=== PATIENT | female | born 1980 | race Caucasian/White ===

== ENCOUNTER 2019-01-24 22:01 | Emergency (ER) | payer OTHER ==
[2019-01-24] MEDS ORDERED: EPINEPHRINE 1 MG/ML 1 ML VIAL IM ONE (22:17)
[2019-01-24] MEDS ORDERED: methylPREDNISolone 125 MG* 2 ML VIAL IV ONE (22:17)
--- NOTE | 2019-01-24 22:24 | ED ---
Allergic Reaction/Systemic - HPI Summary HPI Summary: This patient is a 38 year old F presenting to [facility] accompanied by with a chief complaint of possible allergic reaction that began [employer]. Patient states the symptoms began after showering. The patient rates the pain 6/10 in severity. Symptoms aggravated by nothing. Symptoms alleviated by nothing. Patient reports burning skin, itching skin, swelling lips, swelling eyes, and diffuse rash. Patient denies having any previous allergic reaction. - History of Current Complaint Chief Complaint: EDAllergicReaction Hx Obtained From: Patient Onset/Duration: Sudden Onset, Started hours ago, Still Present Timing: Constant Severity Initially: Moderate Severity Currently: Moderate Pain Intensity: 6 Pain Scale Used: 0-10 Numeric Location: Diffuse Character: Pruritus Aggravating Factor(s): Nothing Alleviating Factor(s): Nothing Associated Signs And Symptoms: Positive: Other: - Positive burning skin, itching skin, swelling lips, swelling eyes, and diffuse rash - Allergies/Home Medications Allergies/Adverse Reactions: Allergies Allergy/AdvReac Type Severity Reaction Status Date / Time No Known Allergies Allergy Verified 01/24/19 22:04 PMH/Surg Hx/FS Hx/Imm Hx Previously Healthy: Yes Opthamlomology History: Denies: Hx Legally Blind EENT History: Denies: Hx Deafness - Immunization History Date of Tetanus Vaccine: unk Date of Influenza Vaccine: fall 2017 Infectious Disease History: No Infectious Disease History: Denies: Traveled Outside the [place] in Last 30 Days - Family History Known Family History: Positive: Diabetes Negative: Cardiac Disease - Social History Occupation: Employed Full-time Lives: With Family Alcohol Use: Weekly Hx Substance Use: No Substance Use Type: Reports: None Hx Tobacco Use: No Smoking Status (MU): Never Smoked Tobacco Review of Systems Positive: Other - Positive swelling of the lips and eyes Positive: Rash, Other - Positive burning skin and itching skin All Other Systems Reviewed And Are Negative: Yes Physical Exam - Summary Physical Exam Summary: Appearance: Well appearing, no pain distress Skin: warm, dry, diffuse erythematous rash Head/face: normal Eyes: EOMI, SETH ENT: normal Neck: supple, non-tender Respiratory: CTA, breath sounds present Cardiovascular: RRR, pulses symmetrical Abdomen: non-tender, soft Musculoskeletal: normal, strength/ROM intact Neuro: normal, sensory motor intact, A&Ox3 Triage Information Reviewed: Yes Vital Signs On Initial Exam: Initial Vitals Temp Pulse Resp BP Pulse Ox 99.8 F 103 22 206/125 97 01/24/19 22:04 01/24/19 22:04 01/24/19 22:04 01/24/19 22:04 01/24/19 22:04 Vital Signs Reviewed: Yes Diagnostics - Vital Signs Vital Signs Temp Pulse Resp BP Pulse Ox 01/24/19 22:04 99.8 F 103 22 206/125 97 - Laboratory Lab Statement: Any lab studies that have been ordered have been reviewed, and results considered in the medical decision making process. Allergic Reaction Course/Dx - Course Course Of Treatment: This patient is a 38 year old F presenting to [facility] accompanied by with a chief complaint of possible allergic reaction that began [employer]. Physical Exam Findings: Diffuse erythematous rash. In the ED course the patient was given epinephrine and solu-medrol. Patient will be discharged with follow up from PCP. The patient is agreeable with this plan. - Diagnoses Differential Diagnosis/HQI/PQRI: Positive: Local Allergic Reaction Provider Diagnoses: Allergic reaction Discharge - Sign-Out/Discharge Documenting (check all that apply): Patient Departure - Discharge home Patient Received Moderate/Deep Sedation with Procedure: No - Discharge Plan Condition: Stable Disposition: HOME Prescriptions: predniSONE TAB* [Deltasone TAB*] 50 mg PO ONCE #3 tab Patient Education Materials: Allergies (ED) Referrals: [facility] [place] [facility]FERR[facility] [Outside] Additional Instructions: RETURN TO THE EMERGENCY DEPARTMENT FOR NEW OR WORSENING SYMPTOMS - Billing Disposition and Condition Condition: STABLE Disposition: Home - Attestation Statements Document Initiated by Scribe: Yes Documenting Scribe: Samantha Castellon Provider For Whom [facility] is Documenting (Include Credential): Dr. Roby Rubi MD Scribe Attestation: Samantha Magdaleno scribed for Dr. Roby Rubi MD on 01/25/19 at 0004. Scribe Documentation Reviewed: Yes Provider Attestation: The documentation as recorded by the Samantha martinez accurately reflects the service I personally performed and the decisions made by me, Dr. Roby Rubi MD Status of Scribe Document: Viewed
[2019-01-24 23:51] VITALS: BP 198/97
== END 2019-01-24 23:55 | disposition home or self-care (01) ==
LOC: ED 22:01
DX: T78.40XA Allergy, unspecified, initial encounter (principal); R20.8 Other disturbances of skin sensation; L29.9 Pruritus, unspecified; R22.0 Localized swelling, mass and lump, head; R21 Rash and other nonspecific skin eruption; X58.XXXA Exposure to other specified factors, initial encounter
CPT/HCPCS: 96372; 96374; 99283; J2930